=== PATIENT | male | born 1980 | race Caucasian/White ===

== ENCOUNTER 2018-11-19 18:25 | Emergency (ER) | payer SELFPAY ==
[~2018-11-19] VITALS: Ht 167.6 cm; Wt 90.8 kg
[2018-11-19 18:48] VITALS: BP 125/94
--- NOTE | 2018-11-19 19:13 | NUR ---
PT TAKEN TO BED 8.
--- NOTE | 2018-11-19 19:20 | NUR ---
C/O LT HIP AND KNEE PAIN X4 WEEKS. PT REPORTS CRHONIC HIP PAIN X5 YEARS, AND 4 WEEKS AGO A REFRIDGERATOR FELL ON HIS RT SIDE CAUSING PAIN TO BECOME UNBEARABLE. TX WITH IBUPROFEN AND TYLENOL. PT ALSO REPORTS TOOTHACHE IN RT UPPER MOLAR. MEDHX:DENIES RX:IBUPROFEN, TYLENOL
[2018-11-19] MEDS ORDERED: HYDROcodone/APAP 5/325 MG 1 TAB TAB PO ONE (19:45)
--- NOTE | 2018-11-19 19:51 | NUR ---
X-Ray at bedside.
--- NOTE | 2018-11-19 20:10 | NUR ---
Patient discharged with v/s stable. Written and verbal after care instructions given and explained. Patient alert, oriented and verbalized understanding of instructions. Ambulatory with steady gait. All questions addressed prior to discharge. ID band removed. Patient advised to follow up with PMD. Rx of NAPROXYN, TYLENOL given. Patient educated on indication of medication including possible reaction and side effects. Opportunity to ask questions provided and answered.
[2018-11-19 20:25] VITALS: BP 122/89
== END 2018-11-19 20:25 | disposition home or self-care (01) ==
LOC: MED 18:25
DX: M76.32 Iliotibial band syndrome, left leg (principal); K08.89 Other specified disorders of teeth and supporting structures; F17.210 Nicotine dependence, cigarettes, uncomplicated
CPT/HCPCS: 73502; 73562; 99283; Q0092